=== PATIENT | female | born 1965 | race Caucasian/White ===

== ENCOUNTER → 2021-01-28 | Outpatient (CLI) | payer BC ==
[~2021-01-28] MED LIST: ALBU2.5V8 IH; ATOR10TA60 PO; CIDE500T PO; FLUT1DIS3 IH; FURO20TA3 PO; GLIM4TAB8 PO; LEVO200T5 PO; LOSA100T14 PO; OMEG1CAP50 PO; OXYC5CAP PO; TRAM50TA PO; VITA1TAB19 PO; VITAMIN D PO; WARF3TAB50 PO
[2021-01-28 12:40] LABS: BASO % 0 % (0-3); EOS # 0.1 x10^3/uL (0.0-0.7); EOS % 1 % (0-3); HEMATOCRIT 39.1 % (36.0-47.0); HEMOGLOBIN 13.3 g/dL (12.0-15.5); LYMPH % 23 % (24-48); MEAN CORPUSCULAR HEMOGLOBIN 30 pg (25-35); MEAN CORPUSCULAR HGB CONC 34 g/dL (31-37); MEAN CORPUSCULAR VOLUME 88 fL (79-100); MONO # 0.7 x10^3/uL (0.0-1.1); MONO % 7 % (0-9); NEUT # 6.2 x10^3/uL (1.8-7.7); NEUT % 69 % (31-73); PLATELET COUNT 297 x10^3/uL (140-400); RED BLOOD COUNT 4.47 x10^6/uL (3.50-5.40); RED CELL DISTRIBUTION WIDTH 12.8 % (11.5-14.5)
[2021-01-28 12:48] LABS: PROTHROMBIN TIME PATIENT 12.9 SEC (11.7-14.0)
--- NOTE | 2021-01-28 12:54 | EKG ---
[facility] [address] [place] [address] Test Date: 2021-01-28 Test Time: 12:45:16 Pat Name: TAZ CEE Department: Room: Gender: F Police Sergeant: TD : 1965 Requested By: WEI WISDOM Order Number: [id number] Reading MD: Sree Madera Measurements Intervals [place] Rate: 79 P: 36 OH: 200 QRS: -6 QRSD: 92 T: 38 QT: 396 QTc: 455 Interpretive Statements SINUS RHYTHM LEFTWARD AXIS Electronically Signed On 02-01-2021 9:26:03 CDT by Sree Madera
[2021-01-28 12:57] LABS: ALBUMIN 3.9 g/dL (3.4-5.0); CALCIUM 9.5 mg/dL (8.5-10.1); CREATININE 1.1 mg/dL (0.6-1.0); GFR 51.4
--- NOTE | 2021-01-28 15:24 | RAD ---
EXAM: XR CHEST 2V 01/28/2021 12:51 PM CLINICAL INDICATION: Preop for total knee replacement COMPARISON: None TECHNIQUE: PA and lateral views of the chest FINDINGS: The heart and mediastinum are normal. Lungs are well-expanded. Mild linear atelectasis in the medial lung bases. No consolidation, pleural effusion, or pneumothorax. Pulmonary vascularity i s normal. No acute osseous abnormality. IMPRESSION: No acute cardiopulmonary abnormality. Electronically signed by: Alecia Medina MD (01/28/2021 3:22 PM) [id number]
== END ==
LOC: SURGPAT 11:43
PROVIDERS: ATTEND Orthopaedic Surgery
DX: Z01.818 Encounter for other preprocedural examination (principal); M17.12 Unilateral primary osteoarthritis, left knee; R94.31 Abnormal electrocardiogram [ECG] [EKG]; Z96.652 Presence of left artificial knee joint
CPT/HCPCS: 71046; 80048; 82040; 82306; 83036; 85025; 85610; 85651; 85730; 87641; 93005

== ENCOUNTER 2021-02-09 06:06 | Observation (INO) | payer BC ==
[2021-01-28 13:10] VITALS: BP 129/69
[~2021-02-09] VITALS: Ht 152.4 cm; Wt 95.4 kg
[2021-02-09] VITALS (11 sets, daily range): BP systolic 107–154; BP diastolic 56–83
[~2021-02-09 06:06] MED LIST changes: +ACETAMINOPHEN 500 MG TABLET PO PRN; +GABAPENTIN 300 MG CAPSULE. PO PRN; +IV RINGERS,LACTATED 1000ML 1,000 ML IV SCH; +MELOXICAM 7.5 MG TABLET PO PRN; +MORPHINE SULFATE 5 MG, KETOROLAC 30MG VIAL 30 MG, ROPIVacaine 0.5% PF 60 ML, EPINEPHrin... INT ART ONE; -OXYC5CAP PO; +PROCHLORPERAZINE 10 MG/2 ML VIAL. IVP PRN; +TRANEXAMIC ACID 1,000 MG in IV NS 50ML -- 1ST BAG INJ ONE; -WARF3TAB50 PO; +fentaNYL PF VIAL 100 MCG/2 ML VIAL IVP PRN
[2021-02-09] MEDS: INSULIN LISPRO 100 UNIT/ML 3ML VIAL for OP,RR ONLY. SQ PRN ×2 (06:48→10:46)
[2021-02-09] MEDS ORDERED: TRANEXAMIC ACID in NS IVPB 50 ML ONE ×2 (07:01→07:02)
[2021-02-09] MEDS ORDERED: VANCOMYCIN 1 GM VIAL. ONE (07:01)
[2021-02-09 07:06] LABS: PROTHROMBIN TIME PATIENT 12.5 SEC (11.7-14.0)
[2021-02-09] MEDS ORDERED: fentaNYL PF VIAL 250 MCG/5 ML VIAL ONE (07:22)
[2021-02-09] MEDS ORDERED: ALBUTEROL SULFATE 2.5 MG/3 ML NEBU. INH PRN (07:30)
[2021-02-09] MEDS ORDERED: diphenhydrAMINE 50 MG/ML VIAL IVP PRN (07:30)
[2021-02-09] MEDS ORDERED: DEXTROSE 50% 25 GM / 50ML DISP.SYRIN. IV PRN (07:30)
[2021-02-09] MEDS ORDERED: fentaNYL PF VIAL 100 MCG/2 ML VIAL IVP PRN (07:30)
[2021-02-09] MEDS: IV NORMAL SALINE 1000ML BAG 1,000 ML IV SCH ×2 (07:30→14:35)
[2021-02-09] MEDS ORDERED: 0.9 % SODIUM CHLORIDE 10 ML DISP.SYRIN. IV PRN (07:30)
[2021-02-09] MEDS ORDERED: MORPHINE SULFATE 2 MG/ML VIAL. IVP PRN (07:30)
[2021-02-09] MEDS ORDERED: CALCIUM CARBONATE 500 MG TAB.CHEW PO PRN (07:30)
[2021-02-09] MEDS ORDERED: ZOLPIDEM 5 MG TABLET. PO PRN (07:30)
[2021-02-09] MEDS ORDERED: PROCHLORPERAZINE 5 MG TABLET. PO PRN (07:30)
[2021-02-09] MEDS ORDERED: TRANEXAMIC ACID 1,000 MG in IV NS 50ML -- 2ND BAG INJ ONE (08:00)
[2021-02-09] MEDS ORDERED: LIDOCAINE 2% PF 5 ML VIAL. ONE (08:09)
[2021-02-09] MEDS ORDERED: ONDANSETRON PF 4 MG/2 ML VIAL. ONE (08:09)
[2021-02-09] MEDS ORDERED: PROPOFOL 10 MG/ML (20ML) VIAL. IV ONE (08:09)
[2021-02-09] MEDS ORDERED: SEVOFLURANE > 120 MINUTES. IH ONE (08:09)
[2021-02-09] MEDS ORDERED: DEXAMETHASONE SOD PHOS 4 MG/ML VIAL ONE (08:09)
--- NOTE | 2021-02-09 08:45 | HP ---
ADMIT DATE: 02/09/2021 CHIEF COMPLAINT: Bilateral knee pain, left worse than right, and degenerative left knee. HISTORY OF PRESENT ILLNESS: The patient has had longstanding bilateral knee pain, left worse than the right currently. She says she was receiving cortisone shots from a doctor in [place] that did not work anymore. Surgery was delayed by her kidney function initially and later by [facility]. She has worn a brace before, but still has painful grinding on the knee and a lot of pain, worsening over time and worse with activity, severely affecting her activities of daily living. PAST MEDICAL HISTORY: Significant for type 2 diabetes - she says well controlled, hypertension, obesity, asthma. She denies any past surgical history. FAMILY HISTORY: Noncontributory. Mother and father both . SOCIAL HISTORY: Denies smoking, alcohol or drug use. She is and her is accompanying her today. MEDICATIONS: List is reviewed. ALLERGIES: NO KNOWN MEDICATION ALLERGIES, ALTHOUGH PECANS GIVE HER A REACTION OF HIVES. REVIEW OF SYSTEMS: Denies any recent fever, chills, chest pain, shortness of breath or other constitutional symptoms. No focal weakness or tingling, numbness, significant only for the ongoing left knee pain more than right. PHYSICAL EXAMINATION: GENERAL: Pleasant, cooperative, 55-year-old female, alert and oriented, in no acute distress. VITAL SIGNS: Per admission sheet. HEENT: Atraumatic, normocephalic. HEART: Regular rate and rhythm. LUNGS: Clear to auscultation bilaterally. ABDOMEN: Benign. EXTREMITIES: Examination of the left knee shows joint line tenderness, medial more so than lateral, both are more severe than found on the right knee. She has moderate patellofemoral crepitus bilaterally without instability. Normal alignment, stability, bilateral hip and ankle. No signs of trochanteric bursitis. She has negative straight leg raise bilaterally. LABORATORY AND DIAGNOSTIC DATA: X-rays show tricompartmental degenerative change of both knees, much more severe on the left than the right. She has [id number] degenerative changes on the left. IMPRESSION: Primary osteoarthritis of both knees, bilateral knee pain, left much worse than right and well controlled type 2 diabetes. TREATMENT PLAN: I have gone over with her risks, benefits, postoperative course of total knee arthroplasty including the possibility of infection, nerve or blood vessel damage, premature wear or loosening, continued pain, blood clots, medical or other anesthetic complications among others. All her questions were answered and she wishes to proceed with surgical evaluation and treatment, which will include [facility] observation to follow. KEILA DR: Veronica TID: [id number]
[2021-02-09] MEDS: FUROSEMIDE 20 MG TABLET PO SCH (09:00)
[2021-02-09] MEDS: MULTIVITAMIN with MINERAL TABLET. PO SCH ×2 (09:00→13:18)
[2021-02-09] MEDS ORDERED: NON FORMULARY ITEM (Fluticasone/Salmeterol (Advair 250-50 Diskus) 1 PUFF) IH SCH (09:00)
[2021-02-09] MEDS: GLIMEPIRIDE 2 MG TABLET. PO SCH ×3 (09:00→21:31)
[2021-02-09] MEDS: LOSARTAN POTASSIUM 50 MG TABLET. PO SCH (09:00)
[2021-02-09] MEDS ORDERED: PROCHLORPERAZINE 10 MG/2 ML VIAL. ONE (09:50)
[2021-02-09] MEDS: MORPHINE SULFATE 2 MG/ML VIAL. IVP PRN ×2 (10:01→10:11)
--- NOTE | 2021-02-09 10:14 | RAD ---
INDICATION: Reason: POST OP / Spl. Instructions: / History: COMPARISON: September 2020 IMPRESSION: Left knee: 2 views obtained. Arthroplasty changes without periprosthetic fracture or dislocation. Electronically signed by: Luis Alfredo Vásquez MD (02/09/2021 10:12 AM) [id number]
[2021-02-09] MEDS: LEVOTHYROXINE 150 MCG TABLET PO SCH (10:30)
[2021-02-09] MEDS ORDERED: HYDROmorphone 2 MG/ML VIAL ONE (10:35)
[2021-02-09] MEDS: HYDROmorphone 2 MG/ML VIAL IVP PRN ×2 (10:37→10:47)
--- NOTE | 2021-02-09 11:25 | NUR ---
Arrived to the unit by bed. Awakens easily. No c/o at this time. Left leg elevated on pillow with ice pack. Left knee dressing is Roni wrapped and is d/i with MARIA T. Able to wiggle toes easily, warm to touch and pedal pulses + bilaterally. IVF's intact and infusing. O2 removed sating 97%. TEQUILA and SCD on right leg and BHANU on left foot. Oriented to room and controls. Side rails up x's 2 with call light in reach. Spouse at bedside. Cont. monitor.
--- NOTE | 2021-02-09 11:52 | PDOC4 ---
Operative Note Operative Note Date of surgery: 02/09/2021 Preoperative diagnosis: Degenerative left knee Postoperative diagnosis: Same Operative procedure: Left total knee arthroplasty Surgeon: Saul Assist: Sharif elizabeth Anesthesia: General Estimated blood loss: 25 cc Complications: None Specimens: Cartilage surfaces to pathology Operative indications: Please see my dictated preoperative history and physical for detailed operative indications and note that we had reviewed preoperatively risks benefits postoperative course of the surgery including the possibility of infection continued pain nerve or blood vessel damage premature wear or loosening instability medical or other anesthetic complications among others and she agrees to proceed with surgical evaluation and treatment having given informed consent Operative text: Patient was identified procedure verified patient placed in the supine position on the operating table. After adequate amounts of general anesthesia were administered the left lower extremity was prepped and draped in standard sterile fashion with a thigh tourniquet and after timeout was performed patient procedure identified and verified the left lower extremity was exsanguinated by Esmarch bandage tourniquet inflated to 300 mmHg and a midline incision was made followed by a medial parapatellar approach fat pad was excised and patella everted and the distal femur drilled to accommodate the intramedullary cutting guide which was set at 5 degrees with standard distal cut. Menisci and cruciate ligaments were excised and a tibial cut was made using the extra medullary cutting guide aligned with the ankle centerline and alignment verified with a spacer and drop katharine. Tibia was prepared with a size D persona trial component. Femur was sized at a size 5 and AP lateral chamfer cuts were made and ligament balancing carried out. A medial release was carried out and I did achieve excellent stability with a 12 mm trial medial congruent articular surface spacer. Patella resurfacing was not accomplished due to good preservation of her patellar cartilage. She had excellent tracking. Trial components were removed thorough irrigation carried out with normal saline solution and the following Candelario persona components were cemented in place with polymethylmethacrylate cement: A size D persona natural tibial component and size 5 standard right persona cruciate retaining femur. Excess cement was removed with a curette and a vitamin E medial congruent 12 mm height articular spacer was locked into place and the knee held into extension until cement was dry. Irrigation again carried out with dilute Betadine lavage and normal saline solution and 1 g vancomycin was placed in the knee joint. Retinaculum closed with #1 PDS suture in a running fashion subcutaneous closure with buried Vicryl sutures subcuticular closure with 3-0 strata fix Monocryl. A gio dressing was placed. Toes were noted to be warm pink following deflation of the tourniquet patient was returned to recovery room in stable condition having tolerated procedure well. Sharif elizabeth was present for the pro cedure and assisted in patient positioning prepping draping retraction closure dressings WEI WISDOM MD Feb 09, 2021 11:52
[2021-02-09] MEDS: ALBUTEROL SULFATE 2.5 MG/3 ML NEBU. NEB SCH ×2 (12:00→18:31)
[2021-02-09] MEDS: ONDANSETRON PF 4 MG/2 ML VIAL. IVP SCH ×2 (12:00→16:52)
[2021-02-09] MEDS: ONDANSETRON ODT 4 MG TAB.RAPDIS. PO SCH ×2 (12:00→13:18)
[2021-02-09] MEDS ORDERED: WARFARIN 7.5 MG TABLET. PO ONE (16:00)
[2021-02-09] MEDS: FERROUS SULFATE 325 MG TABLET. PO SCH (16:52)
[2021-02-09] MEDS: oxyCODONE IR 5 MG TABLET PO PRN (18:18)
[2021-02-09] MEDS: BUDESONIDE 0.5 MG/2 ML NEBU. NEB SCH (18:31)
--- NOTE | 2021-02-09 19:45 | NUR ---
eMAR: Ancef dose wouldn't scan.
[2021-02-09] MEDS: ATORVASTATIN CALCIUM 10 MG TABLET. PO SCH (20:57)
[2021-02-10 02:39] VITALS: BP 117/60
[2021-02-10 04:53] LABS: PROTHROMBIN TIME PATIENT 14.5 SEC (11.7-14.0)
[2021-02-10] MEDS: ONDANSETRON ODT 4 MG TAB.RAPDIS. PO SCH ×2 (06:00)
[2021-02-10] MEDS ORDERED: traMADol 50 MG TABLET PO SCH (06:00)
[2021-02-10] MEDS: ONDANSETRON PF 4 MG/2 ML VIAL. IVP SCH ×2 (06:00)
[2021-02-10] MEDS ORDERED: MAGNESIUM HYDROXIDE 2,400 MG/30 ML ORAL.SUSP. PO PRN (06:00)
[2021-02-10 06:14] VITALS: BP 121/67
[2021-02-10] MEDS: FUROSEMIDE 20 MG TABLET PO SCH ×2 (06:29→08:32)
[2021-02-10] MEDS: LEVOTHYROXINE 150 MCG TABLET PO SCH (06:29)
[2021-02-10] MEDS: GABAPENTIN 100 MG CAPSULE. PO SCH ×3 (06:29→21:46)
[2021-02-10] MEDS: GLIMEPIRIDE 2 MG TABLET. PO SCH ×2 (06:29→20:17)
[2021-02-10] MEDS: MELOXICAM 7.5 MG TABLET PO SCH (07:52)
[2021-02-10] MEDS: ACETAMINOPHEN 500 MG TABLET PO SCH ×3 (07:52→20:17)
[2021-02-10] MEDS: LOSARTAN POTASSIUM 50 MG TABLET. PO SCH (07:53)
[2021-02-10] MEDS: FERROUS SULFATE 325 MG TABLET. PO SCH ×2 (07:53→17:42)
[2021-02-10] MEDS: oxyCODONE IR 5 MG TABLET PO PRN ×4 (07:53→21:46)
[2021-02-10 09:14] LABS: HEMATOCRIT 33.5 % (36.0-47.0); HEMOGLOBIN 11.2 g/dL (12.0-15.5)
--- NOTE | 2021-02-10 10:19 | NUR ---
Pharmacy Warfarin Dosing Note S: Pharmacy consulted to assist with anticoagulation therapy started 02/09/21 O: TAZ CEE is a 55 year old F with TKA LABS: Last INR: 1.1 Last HGB: 11.2 Last HCT: 33.5 Last dose of 7.5 mg given on 02/09/21 at 1652 Ongoing Drug Interactions: MOBIC A:INR of 1.1 is below desired range. Target range for this patient is: 1.6 - 2.5 P: Warfarin dose: 5 mg Today at 1600 Bridge Therapy: None Next INR due 02/11/21 AM Pharmacy anticoagulation service will continue to follow. LES HARE RPH, 02/10/21 [id number]
[2021-02-10] MEDS ORDERED: ONDANSETRON ODT 4 MG TAB.RAPDIS. PO PRN (12:00)
[2021-02-10] MEDS ORDERED: ONDANSETRON PF 4 MG/2 ML VIAL. IVP PRN (12:00)
[2021-02-10] MEDS ORDERED: BISACODYL 10 MG SUPP.RECT. PR PRN (16:00)
[2021-02-10] MEDS ORDERED: WARFARIN 5 MG TABLET. PO ONE (16:00)
[2021-02-10 18:25] VITALS: BP 140/72
--- NOTE | 2021-02-10 18:31 | PDOC ---
PROGRESS NOTES Date of Service DATE: 02/10/21 TIME: 18:28 Subjective Subjective Problems overnight: Knee is sore this morning no other complaints Objective Vital Signs Vital Signs Date Time Temp Pulse Resp B/P (MAP) Pulse Ox O2 Delivery O2 Flow Rate FiO2 02/10/21 17:42 Room Air 02/10/21 07:53 77 143/74 02/10/21 06:14 98.6 18 95 98.6 02/09/21 17:00 93.0 Physical Exam Jaspreet dressing clean dry intact she has good early range of motion excellent stability intact distal neurovascular status Labs Laboratory Tests Test 02/09/21 06:35 02/09/21 06:39 02/09/21 10:43 02/09/21 16:52 Prothrombin Time 12.5 SEC (11.7-14.0) Prothromb Time International Ratio 0.9 (0.8-1.1) Activated Partial Thromboplast Time 29 SEC (24-38) Glucose (Fingerstick) 133 mg/dL (70-99) 230 mg/dL (70-99) 194 mg/dL (70-99) Test 02/09/21 20:38 02/10/21 04:25 02/10/21 06:18 02/10/21 11:45 Glucose (Fingerstick) 263 mg/dL (70-99) 147 mg/dL (70-99) 144 mg/dL (70-99) Hemoglobin 11.2 g/dL (12.0-15.5) Hematocrit 33.5 % (36.0-47.0) Mean Corpuscular Hemoglobin Concent 34 g/dL (31-37) Prothrombin Time 14.5 SEC (11.7-14.0) Prothromb Time International Ratio 1.1 (0.8-1.1) Laboratory Tests Test 02/09/21 20:38 02/10/21 04:25 02/10/21 06:18 02/10/21 11:45 Glucose (Fingerstick) 263 mg/dL (70-99) 147 mg/dL (70-99) 144 mg/dL (70-99) Hemoglobin 11.2 g/dL (12.0-15.5) Hematocrit 33.5 % (36.0-47.0) Mean Corpuscular Hemoglobin Concent 34 g/dL (31-37) Prothrombin Time 14.5 SEC (11.7-14.0) Prothromb Time International Ratio 1.1 (0.8-1.1) Imaging Postop x-rays show excellent placement total knee arthroplasty Assessment Assessment POD#1 total knee arthroplasty Plan Plan of Care Continue mobilize with physical therapy Warfarin anticoagulation Likely home health on discharge Justicifation of Admission Dx: Justifications for Admission: Justification of Admission Dx: N/A WEI WISDOM MD Feb 10, 2021 18:30
[2021-02-10] MEDS: ALBUTEROL SULFATE 2.5 MG/3 ML NEBU. NEB SCH ×2 (20:13)
[2021-02-10] MEDS: BUDESONIDE 0.5 MG/2 ML NEBU. NEB SCH (20:13)
[2021-02-10] MEDS: ATORVASTATIN CALCIUM 10 MG TABLET. PO SCH (20:17)
[2021-02-10] MEDS: IV NORMAL SALINE 1000ML BAG 1,000 ML IV SCH (21:26)
[2021-02-11] MEDS: ACETAMINOPHEN 500 MG TABLET PO SCH ×3 (03:16→14:35)
[2021-02-11] MEDS: oxyCODONE IR 5 MG TABLET PO PRN ×3 (03:16→12:33)
[2021-02-11] MEDS: LEVOTHYROXINE 150 MCG TABLET PO SCH (04:55)
[2021-02-11 06:00] VITALS: BP 128/58
[2021-02-11] MEDS: GLIMEPIRIDE 2 MG TABLET. PO SCH (06:23)
[2021-02-11] MEDS: GABAPENTIN 100 MG CAPSULE. PO SCH ×2 (06:23→14:35)
[2021-02-11] MEDS ORDERED: WARF3TAB50 PO (06:32)
[2021-02-11] MEDS ORDERED: OXYC5CAP PO (06:32)
--- NOTE | 2021-02-11 06:33 | DISCH ---
DISCHARGE INSTRUCTIONS Condition on Discharge Condition on Discharge: Stable Activity After Discharge Activity Instructions for Disc: Progressive ambulation Weight Bearing Status after Di: As tolerated Diet after Discharge Diet after Discharge: Diabetic No Calorie Level Wound Incision Care Wound/Incision Care: Ice to area for comfort, Keep wound elevated, Do not change dressing (Keep gio dressing intact report if saturated, when suction machine stops cut tail of dressing and tape over to maintain seal) Contacting the DROmi after DC Call your doctor for: Concerns you may have Follow-Up Follow up with: Dr. Hughes or Karen 2 weeks postoperative WEI HUGHES MD Feb 11, 2021 06:33
--- NOTE | 2021-02-11 06:53 | NUR ---
Dr. Hughes here earlier. Patient anticipates dismissal today. FSBS 120, Amaryl given per request. Slept in recliner.
[2021-02-11 07:05] LABS: HEMATOCRIT 32.7 % (36.0-47.0); HEMOGLOBIN 11.3 g/dL (12.0-15.5)
[2021-02-11] MEDS: BUDESONIDE 0.5 MG/2 ML NEBU. NEB SCH (07:20)
[2021-02-11] MEDS: ALBUTEROL SULFATE 2.5 MG/3 ML NEBU. NEB SCH ×3 (07:25→12:00)
[2021-02-11 07:33] LABS: PROTHROMBIN TIME PATIENT 16.5 SEC (11.7-14.0)
[2021-02-11] MEDS: FERROUS SULFATE 325 MG TABLET. PO SCH (08:02)
[2021-02-11] MEDS: MELOXICAM 7.5 MG TABLET PO SCH (08:02)
[2021-02-11] MEDS: MULTIVITAMIN with MINERAL TABLET. PO SCH (08:02)
[2021-02-11 08:03] VITALS: BP 128/58
[2021-02-11] MEDS: FUROSEMIDE 20 MG TABLET PO SCH (08:03)
[2021-02-11] MEDS: LOSARTAN POTASSIUM 50 MG TABLET. PO SCH (08:03)
--- NOTE | 2021-02-11 09:08 | NUR ---
Pharmacy Warfarin Dosing Note S:Pharmacy consulted to assist with anticoagulation therapy started 02/09/21 with target INR: 1.6 - 2.5 O:TAZ CEE is a 55 year old F with TKA LABS: Last INR: 1.3 Last HGB: 11.3 Last HCT: 32.7 Last PLT: -- Last dose of 5 mg given on 02/10/21 at 1742 Vitamin K given: N Drug Interaction Changes: Same Interacting Drug Ongoing Drug Interactions: MOBIC A:INR of 1.3 is below desired range. Target range for this patient is: 1.6 - 2.5 P: Warfarin dose: 5 mg Prior to Discharge Bridge Therapy: None Next INR due 02/15/21 Pharmacy anticoagulation service will continue to follow. LUIZ REYES RPH, 02/11/21 2095
[2021-02-11] MEDS ORDERED: WARFARIN 5 MG TABLET. PO ONE (14:00)
--- NOTE | 2021-02-11 15:55 | NUR ---
Patient left around 1500 with her . IV discontinued earlier today. MARIA T CDI and working properly. Coumadin brought to the patient by pharmacy. Discharge education completed by this nurse, the doctor, and therapy prior to dismissal. OPT at [facility] set up by corrections caseworker. No concerns noted at discharge.
--- NOTE | 2021-02-11 19:08 | PATHOLOGY ---
[facility] Accession Number: [id number] . 01 Material submitted: . knee - LEFT KNEE BONE AND TISSUE. Modifiers: left . 01 Clinical history: . OSTEOARTHRITIS OF LEFT KNEE LEFT TOTAL KNEE ARTHROPLASTY OA . 02 Diagnosis: Segments of bone and articular cartilage, left total knee arthroplasty: - Degenerative arthritis. . (JPM:mml; 02/11/2021) [facility] 02/11/2021 1539 Local . 02 Electronically signed: . Krunal Contreras MD, Pathologist NPI- [id number] . 01 Gross description: . The specimen is received in formalin, labeled "RennerEfrena, left knee bone and tissue" received is a 7.5 cm aggregate of multiple irregular to rounded fragments of bone consistent with a knee joint. The articular surfaces are worn, irregular and eroded. On sectioning, schreiber-white areas of eburnation are noted. [employer] Deputy Sheriff, decalcified sections are submitted in one cassette A1.([facility]; 02/09/2021) . OFELIA/OFELIA 02/09/2021 2134 Local . 02 Pathologist provided ICD-10: M17.12 . 02 CPT . 943827, [id number] Specimen Comment: A courtesy copy of this report has been sent to [phone], [phone] Specimen Comment: [id number] Specimen Comment: Report sent to / DR JOHNSON Performed at: 01 [facility] [address], [place] [id number] MD Red Oh MD Phone: [phone] Performed at: 02 [facility] [address] [place], [place] [id number] MD Krunal Contreras MD Phone: [phone]
== END 2021-02-11 15:15 | disposition home or self-care (01) ==
LOC: SURG 06:06 → 4 SOUTHEST 07:23
PROVIDERS: ADMIT Orthopaedic Surgery; ATTEND Orthopaedic Surgery
DX: M17.12 Unilateral primary osteoarthritis, left knee (principal); I10 Essential (primary) hypertension; J45.909 Unspecified asthma, uncomplicated; E11.9 Type 2 diabetes mellitus without complications; E66.9 Obesity, unspecified; Z96.659 Presence of unspecified artificial knee joint; Z79.899 Other long term (current) drug therapy; Z98.890 Other specified postprocedural states; Z68.41 Body mass index [BMI] 40.0-44.9, adult
CPT/HCPCS: 27447; 36415; 73560; 82962; 85014; 85018; 85610; 85730; 86850; 86900; 86901; 88304; 88311; 94640; 96365; 96366; 96375; 97116; 97150; 97162; 97166; 97530; 97535; A4213; A4930; A6450; A6457; C1713; C1776; G0378; G0379; J0171; J0690; J0780; J1100; J1170; J1815; J1885; J2270; J2405; J2704; J2795; J3010; J3370; J7030; J7613; J7626